=== PATIENT | female | born 1965 | race Caucasian/White ===

== ENCOUNTER → 2016-12-12 | Outpatient (CLI) | payer OTHER ==
--- NOTE | 2016-12-12 15:46 | DI ---
LEFT SHOULDER, 12/12/2016 2:45 PM: Clinical History: Acute left shoulder pain. Previous Exam: None at this facility. 3 views are submitted. There is no acute soft tissue, osseous, or joint abnormality. The visualized p ortions of the left lung are normal. Reading: Normal left shoulder exam.
[2016-12-12 16:49] LABS: FREE T4 (FREE THYROXINE) 1.1 ng/dL (0.93-1.71)
== END ==
LOC: MOB LAB 13:42
PROVIDERS: ATTEND Family Medicine
DX: M25.512 Pain in left shoulder (principal); E03.9 Hypothyroidism, unspecified; F17.200 Nicotine dependence, unspecified, uncomplicated
CPT/HCPCS: 36415; 73030; 84439; 84443